=== PATIENT | female | born 1970 | race Caucasian/White ===

== ENCOUNTER 2017-02-22 08:01 | Day surgery (SDC) | payer OTHER ==
--- NOTE | 2017-02-23 07:52 | OR ---
ADMIT: 02/22/2017 RM/LOC: [facility] MR#: [id number] [address] MARGARITA BORGES [address] [place] [id number] Operative/Delivery Room Report SEX: F AGE: 46 : 1970 SURGERY DATE: 02/22/2017 SURGEON: Mary Jackson MD DESKTOP SUPPORT SPECIALIST: None. PREOPERATIVE DIAGNOSES: 1. Lumbar spondylosis. 2. Lumbago. POSTOPERATIVE DIAGNOSES: 1. Lumbar spondylosis. 2. Lumbago. PROCEDURE PERFORMED: Bilateral lumbar medial branch block at L3, L4, L5, and S1 levels. INDICATION FOR THE PROCEDURE: The patient is a pleasant woman with history of chronic low back pain secondary to above-mentioned diagnosis comes here for planned bilateral lumbar medial branch block. ANESTHESIA: Local without sedation. ESTIMATED BLOOD LOSS: Zero. COMPLICATIONS: None immediately evident. DESCRIPTION OF THE PROCEDURE: After the patient was seen in the preoperative area, vital signs were taken. Prior to the procedure, the risks, benefits, and alternative therapies were discussed at length. The patient's consent was obtained and updated. The patient was taken to the fluoroscopy suite and placed on the fluoroscopy table in a prone position. Pressure points were padded to comfort. Monitors were applied and a timeout performed. The lumbosacral area was prepped and draped sterilely using ChloraPrep. C-arm fluoroscopy was then brought in to identify the junction of the pedicular and transverse process. Then lidocaine 1% was applied; approximately 1 mL was used to anesthetize the skin and underlying subcutaneous tissue at bilateral L3, L4, L5 and S1 levels. At each level, a 3.5 inch 22-gauge spinal needle was used. The needle was then advanced to make contact with the superior articular facet at each level, and then needle was placed between the junction ADMIT: 02/22/2017 RM/LOC: [facility] MR#: [id number] [address] MARGARITA BORGES [address] [place] [address] Operative/Delivery Room Report SEX: F AGE: 46 : 1970 of the superior articular facet and the transfer process. Then the patient received 0.5 mL of 0.25% Marcaine with approximately 40 mg of Depo-Medrol at each level. The patient had reproduction of her typical pain at each level. Then we moved on to the left side, we did the same procedure. The patient tolerated the procedure well. The patient was brought to the PACU where she recovered nicely without any complication. PLAN: The patient was examined after 20 minutes and had 30% reduction of pain. Range of motion went from 10 degree to 15 degrees of extension. Discharge instructions were given. Followup as scheduled. The patient was discharged with a race car driver. Mary Jackson MD/ bernadette JOB #: [id number] CC: Mary Jackson, Attending Physician Mario Gonzalez, Family Physician
== END 2017-02-22 10:28 | disposition home or self-care (01) ==
LOC: SSS 08:01
PROC: BR16YZZ Fluoroscopy of Lumbar Facet Joint(s) using Other Contrast (ICD-10-PCS; principal; 2017-02-22)
PROC: 3E0T33Z Introduction of Anti-inflammatory into Peripheral Nerves and Plexi, Percutaneous Approach (ICD-10-PCS; principal; 2017-02-22)
PROC: 3E0T3BZ Introduction of Anesthetic Agent into Peripheral Nerves and Plexi, Percutaneous Approach (ICD-10-PCS; principal; 2017-02-22)
DX: G89.29 Other chronic pain (principal); M47.816 Spondylosis without myelopathy or radiculopathy, lumbar region; Z88.6 Allergy status to analgesic agent; Z88.8 Allergy status to other drugs, medicaments and biological substances; Z79.899 Other long term (current) drug therapy

== ENCOUNTER → 2017-04-07 | Outpatient (CLI) | payer OTHER | END | disposition home or self-care (01) | LOC: RAD.S 13:05 | DX: R05 Cough (principal); R50.9 Fever, unspecified; Z85.9 Personal history of malignant neoplasm, unspecified ==

== ENCOUNTER 2017-04-12 09:30 | Day surgery (SDC) | payer OTHER ==
--- NOTE | 2017-04-14 08:19 | OR ---
ADMIT: 04/12/2017 RM/LOC: [facility] MR#: [id number] [address] MARGARITA BORGES [address] [place] [id number] Operative/Delivery Room Report SEX: F AGE: 46 : 1970 SURGERY DATE: 04/12/2017 SURGEON: Mary Jackson MD PANTS PRESSER AUTOMATIC: None. PREOPERATIVE DIAGNOSES: 1. Lumbar spondylosis. 2. Lumbago. POSTOPERATIVE DIAGNOSES: 1. Lumbar spondylosis. 2. Lumbago. PROCEDURE PERFORMED: Bilateral lumbar medial branch block at L3, L4, L5, and S1 levels. INDICATION FOR THE PROCEDURE: The patient is a pleasant female with history of chronic low back pain secondary to above-mentioned diagnoses comes here for planned bilateral lumbar medial branch block. ANESTHESIA: Local without sedation. ESTIMATED BLOOD LOSS: Zero. COMPLICATIONS: None immediately evident. DESCRIPTION OF THE PROCEDURE: After the patient was seen in the preoperative area, vital signs were taken. Prior to the procedure, the risks, benefits, and alternative therapies were discussed at length. The patient's consent was obtained and updated. The patient was taken to the fluoroscopy suite and placed on the fluoroscopy table in a prone position. Pressure points were padded to comfort. Monitors were applied and a timeout performed. The lumbosacral area was prepped and draped sterilely using ChloraPrep. C-arm fluoroscopy was then brought in to identify the junction of the pedicular and transverse process. Then lidocaine 1% was applied; approximately 1 mL was used to anesthetize the skin and underlying subcutaneous tissue at bilateral L3, L4, L5 and S1 levels. At each level, a 3.5 inch 22-gauge spinal needle was used. The needle was then advanced to make contact with the superior articular facet at each level, and then needle was placed between the junction ADMIT: 04/12/2017 RM/LOC: [facility] MR#: [id number] [address] MARGARITA BORGES [address] [place] [id number] Operative/Delivery Room Report SEX: F AGE: 46 : 1970 of the superior articular facet and the transfer process. Then the patient received 0.5 mL of 0.25% Marcaine with approximately 40 mg of Depo-Medrol at each level. The patient had reproduction of her typical pain at each level. Then we moved on to the left side; we did the same procedure. The patient tolerated the procedure well. The patient was brought to the PACU where she recovered nicely without any complication. PLAN: The patient was examined after 20 minutes and had 30% reduction of pain. Range of motion, mainly extension, went from 10 degrees of extension to 15 degrees of extension. Discharge instructions were given. Followup as scheduled. The patient was discharged with a utility worker driver. Mary Jackson MD/ bernadette JOB #: [id number] CC: Mary Jackson, Attending Physician Mario Gonzalez, Family Physician
== END 2017-04-12 11:10 | disposition home or self-care (01) ==
LOC: SSS 09:30
DX: G89.29 Other chronic pain (principal); M47.816 Spondylosis without myelopathy or radiculopathy, lumbar region; Z88.5 Allergy status to narcotic agent; Z88.8 Allergy status to other drugs, medicaments and biological substances; Z88.1 Allergy status to other antibiotic agents; Z79.899 Other long term (current) drug therapy